=== PATIENT | female | born 1990 | race Two or more races ===

== ENCOUNTER 2023-03-17 16:13 | Emergency (ER) | payer MEDICAID ==
[~2023-03-17] VITALS: Ht 167.6 cm; Wt 109.1 kg
[~2023-03-17 16:13] MED LIST: BACL10TA PO; NAPR-1193 PO
[2023-03-17 18:22] LABS: BASOPHILS % (AUTO) 0.4 % (0.0-2.0); HEMATOCRIT 40.2 % (36-46); HEMOGLOBIN 13.5 g/dL (12.0-16.0); LYMPHOCYTES # (AUTO) 2.1 K/uL (1.0-4.8); LYMPHOCYTES % (AUTO) 21.2 % (22.0-44.0); MEAN CORPUSCULAR HEMOGLOBIN 30.4 pg (26.0-34.0); MEAN CORPUSCULAR HGB CONC 33.4 G/dL (31.0-37.0); MEAN CORPUSCULAR VOLUME 91 fL (80-100); MONOCYTES # (AUTO) 0.5 K/uL (0.1-1.0); MONOCYTES % (AUTO) 4.8 % (2.0-9.0); NEUTROPHILS # (AUTO) 7.1 K/uL (1.8-7.7); NEUTROPHILS % (AUTO) 72.6 % (40.0-70.0); PLATELET COUNT (AUTO) 270 K/uL (150-450); RED BLOOD CELL COUNT(AUTO) 4.43 MIL/uL (4.00-5.20); RED CELL DISTRIBUTION WIDTH 14.3 % (11.5-14.5)
[2023-03-17 18:38] LABS: ANION GAP 12 mmol/L (8-16); CALCIUM, TOTAL 8.9 mg/dL (8.8-10.5); CARBON DIOXIDE 24 mmol/L (22-29); CHLORIDE 103 mmol/L (98-107); CREATININE 0.69 mg/dL (0.60-1.30); GLOMERULAR FILTR. RATE CALC > 60 mL/min (>60); GLUCOSE,RANDOM 90 mg/dL (70-110); POTASSIUM 3.8 mmol/L (3.5-5.1); SODIUM SERUM 139 mmol/L (136-145)
[2023-03-17 18:50] LABS: HCG,QUANTITATIVE < 1 mIU/mL (0-6)
[2023-03-17 20:09] VITALS: BP 129/74; PULSE 69; RESP 16; TEMP 97.9
== END 2023-03-17 20:30 | disposition home or self-care (01) ==
LOC: EMS 16:15
DX: R55 Syncope and collapse (principal); F32.A Depression, unspecified; F12.90 Cannabis use, unspecified, uncomplicated
CPT/HCPCS: 80048; 84702; 85025; 93005; 99284